=== PATIENT | female | born 1970 | race Caucasian/White ===

== ENCOUNTER 2017-04-10 08:00 | Outpatient (CLI) | payer BC | END 2017-04-10 08:01 | disposition home or self-care (01) | LOC: BICMAMMO 08:00 | PROVIDERS: ATTEND Obstetrics & Gynecology | DX: Z12.31 Encounter for screening mammogram for malignant neoplasm of breast (principal); N64.89 Other specified disorders of breast | CPT/HCPCS: 77063; 77067; G0202 ==

== ENCOUNTER 2018-04-21 12:02 | Outpatient (CLI) | payer BC | END 2018-04-21 12:03 | disposition home or self-care (01) | LOC: BICMAMMO 12:02 | PROVIDERS: ATTEND Obstetrics & Gynecology | DX: Z12.31 Encounter for screening mammogram for malignant neoplasm of breast (principal); N64.89 Other specified disorders of breast; Z80.3 Family history of malignant neoplasm of breast | CPT/HCPCS: 77063; 77067 ==

== ENCOUNTER 2020-05-20 14:55 | Outpatient (CLI) | payer OTHER ==
--- NOTE | 2020-05-20 15:21 | MMO ---
Left Breast MAMMO Unilat Diag DDI LT+BARI. CLINICAL HISTORY: Patient is 50 years old and is seen for diagnostic exam. The patient has no personal history of cancer. The patient has a history of left Excisional Biopsy in 2003 - cyst removed. VIEWS: The views performed were: left craniocaudal with tomosynthesis; left mediolateral oblique with tomosynthesis; and left mediolateral with tomosynthesis. FILMS COMPARED: The present examination has been compared to prior imaging studies performed at [facility] on 04/27/2019 and 05/12/2020, and at [facility] on 04/10/2017 and 04/21/2018. This study has been interpreted with the assistance of computer-aided detection. MAMMOGRAM FINDINGS: The asymmetry seen at screening mammography does not persist at additional imaging, compatible with superimposed tissue. IMPRESSION: THERE IS NO MAMMOGRAPHIC EVIDENCE OF MALIGNANCY. A ROUTINE FOLLOW-UP MAMMOGRAM IN 1 YEAR IS RECOMMENDED. THE RESULTS OF THIS EXAM WERE SENT TO THE PATIENT. ACR BI-RADS Category 1 - Negative MAMMOGRAPHY NOTE: 1. A negative mammogram report should not delay a biopsy if a dominant of clinically suspicious mass is present. 2. Approximately 10% to 15% of breast cancers are not detected by mammography. 3. Adenosis and dense breasts may obscure an underlying neoplasm. Reported by: NAVIN VILLASENOR MD Electonically Signed: [id number]
== END 2020-05-20 14:56 | disposition home or self-care (01) ==
LOC: BICMAMMO 14:55
PROVIDERS: ATTEND Physician Assistant
DX: R92.8 Other abnormal and inconclusive findings on diagnostic imaging of breast (principal)
CPT/HCPCS: G0279

== ENCOUNTER 2021-05-23 12:02 | Outpatient (CLI) | payer OTHER | END 2021-05-23 12:03 | disposition home or self-care (01) | LOC: BICMAMMO 12:02 | PROVIDERS: ATTEND Physician Assistant | DX: Z12.31 Encounter for screening mammogram for malignant neoplasm of breast (principal); Z98.890 Other specified postprocedural states; Z80.3 Family history of malignant neoplasm of breast | CPT/HCPCS: 77063; 77067 ==

== ENCOUNTER 2022-05-29 12:41 | Outpatient (CLI) | payer OTHER | END 2022-05-29 12:42 | disposition home or self-care (01) | LOC: BICMAMMO 12:41 | PROVIDERS: ATTEND Physician Assistant | DX: Z12.31 Encounter for screening mammogram for malignant neoplasm of breast (principal); Z80.3 Family history of malignant neoplasm of breast | CPT/HCPCS: 77063; 77067 ==